=== PATIENT | male | born 1970 | race Caucasian/White ===

== ENCOUNTER → 2016-12-04 | Outpatient (CLI) | payer BC | LOC: WI 09:14 | PROVIDERS: ATTEND Physician Assistant | DX: N63 Unspecified lump in breast (principal); N64.4 Mastodynia | CPT/HCPCS: 76642; G0204; 77066 ==

== ENCOUNTER 2020-02-16 11:03 | Emergency (ER) | payer BC ==
[2020-02-16 11:34] VITALS: BP 167/87
[2020-02-16] MEDS ORDERED: COLCHICINE 0.6 MG TABLET PO ONE ×2 (11:36)
[2020-02-16] MEDS ORDERED: NAPROXEN 250 MG TABLET PO ONE (11:36)
--- NOTE | 2020-02-16 11:38 | ER Document Report ---
ED Extremity Problem, Upper - General Chief Complaint: Arm Pain Stated Complaint: LEFT ELBOW PAIN, SWELLING Time Seen by Provider: 02/16/20 11:26 Primary Care Provider: DANIEL ANTONIO PA-C [Primary Care Provider] - Follow up as needed TRAVEL OUTSIDE OF THE [place] IN LAST 30 DAYS: No - Related Data Allergies/Adverse Reactions: No Known Allergies Allergy (Verified 02/16/20 11:20) Home Medications: allopurinol, simvastatin, lisinopril, hydroxyzine, robaxin, multivitmain, fe, bactrim Past Medical History - Social History Smoking Status: Never Smoker Chew tobacco use (# tins/day): No Frequency of alcohol use: Rare Drug Abuse: None Family History: Reviewed & Not Pertinent Patient has suicidal ideation: No Patient has homicidal ideation: No - Past Medical History Cardiac Medical History: Reports: Hx Hypertension Pulmonary Medical History: Reports: Hx Sleep Apnea Renal/ Medical History: Reports: Hx Kidney Stones Musculoskeletal Medical History: Reports Hx Gout Past Surgical History: Reports: Hx Orthopedic Surgery - right torn meniscus, Hx Tonsillectomy - Immunizations Hx Diphtheria, Pertussis, Tetanus Vaccination: Yes Physical Exam - Vital signs Vitals: Temp Pulse Resp BP Pulse Ox 97.8 F 84 18 167/87 H 95 02/16/20 11:08 02/16/20 11:08 02/16/20 11:08 02/16/20 11:08 02/16/20 11:08 Course - Vital Signs Vital signs: Temp Pulse Resp BP Pulse Ox 97.8 F 84 18 167/87 H 95 02/16/20 11:08 02/16/20 11:08 02/16/20 11:08 02/16/20 11:08 02/16/20 11:08 Discharge - Discharge Clinical Impression: Gout Qualifiers: Gout site: elbow Gout etiology: unspecified cause Chronicity: acute Laterality: left Qualified Code(s): M10.9 - Gout, unspecified Condition: Stable Disposition: HOME, SELF-CARE Additional Instructions: Gout You have been diagnosed as having gout. Gout is a problem caused by an excess of uric acid, a natural chemical found in the body. The cause of this disease is unknown. Gout arthritis occurs when crystals of uric acid form in the joints. The big toe is the most common joint involved, but any joint can become affected. Persons with gout may also form uric acid kidney stones, resulting in flank pain and blood in the urine. Nodules of uric acid may form under the skin. The first step of treatment is to decrease the inflammation in the joint with antiinflammatory medication. Medication to lower the uric acid level in the blood may then be prescribed. This medication should be taken regularly, as any sudden change in dosage may provoke an attack of gout. Some foods, such as red meat, can provoke an attack in some gout sufferers. Call the doctor if new symptoms arise, or if you do not improve. Gout Diet Changing your diet can decrease the uric acid in your blood. High levels of uric acid cause gouty arthritis and uric acid kidney stones. If you have gout, you should avoid meats that are high in purine. Meat products to avoid include liver, kidneys, and brains. In general, poultry is better than red meats. Seafoods to avoid include anchovies, sardines, mendes, mackerel, and scallops. In addition to limiting purine-rich foods, people with gout should limit protein intake to 10-15% of total calories. Carbohydrate intake should be around 50% of total daily calories. Limit fat intake to 30% of total daily calories. Ch olesterol intake should be less than 300 mg/day. Maintain or achieve a healthy body weight. Weight loss should be gradual. Rapid weight loss can actually increase uric acid levels temporarily. Alcohol, especially beer, should be avoided. Get plenty of fluids. This dilutes urinary uric acid, and helps prevent uric acid kidney stones. Drink eight to twelve cups of water daily. Anti-Inflammatory Medication You have received a prescription for an antiinflammatory agent. This is an excellent, safe drug for pain control. In addition, it has potent antiinfla mmatory effects which are beneficial, especially in the treatment of injuries, arthritis, or tendonitis. It's best to take this medicine with food. Persons with ulcer disease or allergy to aspirin should notify their physician of this before taking this drug. Take the medication exactly as prescribed. Don't take additional doses unless instructed to do so by your doctor. If you develop wheezing, shortness of breath, hives, faintness, stomach pain, vomiting, or dark black stools, return for re-evaluation at once. Will be given 1 colchicine pill that she needs to take 1 hour after the pill you are taking in the emergency room. You need to call your primary care doctor for further care. Will you also be given naproxen while in the emergency room and a prescription for naproxen. FOLLOW-UP CARE: If you have been referred to a physician for follow-up care, call the physicians office for an appointment as you were instructed or within the next two days. If you experience worsening or a significant change in your symptoms, notify the physician immediately or return to the Emergency Department at any time for re-evaluation. Prescriptions: Naproxen 500 mg PO BIDP PRN #20 tablet PRN Reason: Forms: Elevated Blood Pressure Referrals: DANIEL ANTONIO PA-C [Primary Care Provider] - Follow up as needed
== END 2020-02-16 11:46 | disposition home or self-care (01) ==
LOC: ER 11:03
DX: M10.9 Gout, unspecified (principal); M25.522 Pain in left elbow; I10 Essential (primary) hypertension
CPT/HCPCS: 99283